=== PATIENT | male | born 1995 | race Two or more races ===

== ENCOUNTER 2021-04-25 22:17 | Emergency (ER) | payer BC, MEDICAID ==
[~2021-04-25] VITALS: Ht 162.6 cm; Wt 63.0 kg
[2021-04-25 22:44] LABS: BASOPHILS % (AUTO) 1 % (0-1); EOSINOPHILS % (AUTO) 0 % (1-7); LYMPHOCYTES % (AUTO) 8 % (22-44); MEAN CORPUSCULAR HEMOGLOBIN 27.6 pg (27.5-34.5); MEAN CORPUSCULAR HGB CONC 34.3 g/dL (33.2-36.2); MEAN PLATELET VOLUME 7.4 fL (7.4-10.4); MONOCYTES % (AUTO) 8 % (2-9); NEUTROPHILS % (AUTO) 83 % (42-75); PLATELET COUNT 328 x10^3/uL (130-400); RED BLOOD COUNT 5.54 x10^6/uL (4.38-5.82)
[2021-04-25 22:55] LABS: ALANINE AMINOTRANSFERASE 30 U/L (12-78); ALBUMIN 5.3 g/dL (3.4-5.0); ANION GAP 9 mmol/L (5-15); CALCIUM 9.9 mg/dL (8.5-10.1); CHLORIDE 102 mmol/L (98-107); CREATININE 1.86 mg/dL (0.7-1.3)
[2021-04-25 22:57] LABS: ALKALINE PHOSPHATASE 72 U/L (45-117); BILIRUBIN,TOTAL 1.7 mg/dL (0.2-1.0); TOTAL PROTEIN 9.7 g/dL (6.4-8.2)
--- NOTE | 2021-04-25 23:10 | NUR ---
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
[2021-04-25] MEDS ORDERED: ONDANSETRON 2MG/ML, 2ML ONE (23:27)
[2021-04-25] MEDS ORDERED: MORPHINE SULFATE 4 MG/ML, 1ML ONE (23:27)
[2021-04-25] MEDS ORDERED: PROMETHAZINE 25 MG/ML, 1ML ONE (23:27)
[2021-04-25] MEDS ORDERED: FAMOTIDINE 20 MG/2 ML ONE (23:28)
[2021-04-25] MEDS ORDERED: FAMOTIDINE 20 MG/2 ML IVPush ONE (23:30)
[2021-04-25] MEDS ORDERED: MORPHINE SULFATE 4 MG/ML, 1ML IVPush PRN (23:30)
[2021-04-25] MEDS ORDERED: SODIUM CHLORIDE 0.9% 1,000ML IVBOLUS ONE (23:30)
[2021-04-25] MEDS ORDERED: ONDANSETRON 2MG/ML, 2ML IVPush ONE (23:30)
[2021-04-25] MEDS ORDERED: PROMETHAZINE 25 MG/ML, 1ML IM ONE (23:30)
--- NOTE | 2021-04-25 23:45 | NUR ---
THIS IS A 25 YO M W/ C/O N/V, EPIGASTRIC AND RUQ ABD PAIN X4 DAYS. PT REPORTS RECENTLY STOPPED SMOKING MARIJUANA AND BELIEVES THAT MAY BE THE CAUSE. PT REPORTS HX OF GALL BLADDER PROBLEMS BUT STILL PRESENT. PT RESTING ON GURNEY W/ CALL LIGHT IN REACH AND SIDE RAILS UPX2, FAMILY AT BEDSIDE. RESP EVEN AND UNLABORED, GAMAN.
--- NOTE | 2021-04-25 23:48 | NUR ---
PIV STARTED, PT MEDICATED PER EMAR. PT TO US.
--- NOTE | 2021-04-26 00:28 | NUR ---
PT REPORTS IMPROVEMENT IN PAIN AND NAUSEA S/P MEDS.
[2021-04-26 01:35] VITALS: BP 104/65
[2021-04-26] MEDS ORDERED: POTASSIUM CHLORIDE 20 MEQ TAB.ER.PRT ONE (01:36)
--- NOTE | 2021-04-26 01:49 | NUR ---
Patient given discharge instructions and they have confirmed that they understand the instructions. Patient ambulatory with steady gait.
[2021-04-26] MEDS ORDERED: POTASSIUM CHLORIDE 20 MEQ TAB.ER.PRT PO ONE (02:00)
== END 2021-04-26 01:50 | disposition home or self-care (01) ==
LOC: ED 23:00
DX: R11.2 Nausea with vomiting, unspecified (principal); E86.0 Dehydration; E86.9 Volume depletion, unspecified; E87.6 Hypokalemia; D72.829 Elevated white blood cell count, unspecified; R94.4 Abnormal results of kidney function studies; F17.210 Nicotine dependence, cigarettes, uncomplicated
CPT/HCPCS: 36415; 76700; 80053; 83690; 85025; 96361; 96372; 96374; 96375; 99285; 99406; J2270; J2405; J2550; J7030